=== PATIENT | female | born 1970 | race Caucasian/White ===

== ENCOUNTER 2017-07-12 13:21 | Emergency (ER) | payer BC, OTHER ==
[2017-07-12 13:31] VITALS: BP 127/77
[2017-07-12] MEDS ORDERED: HYDROmorphone 1 MG/ML Syringe IM ONE (13:59)
[2017-07-12] MEDS ORDERED: cefTRIAXone 1 GM Vial IM SCH (14:00)
[2017-07-12] MEDS ORDERED: Ciprofloxacin in D5W 400 MG in Premix Bag 1 BAG IV ONE ×4 (14:28→14:39)
[2017-07-12] MEDS ORDERED: Bacitracin/Neomycin/Polymyxin B Oint 0.9 GM U/D Packet TOP ONE (14:31)
[2017-07-12] MEDS ORDERED: Sodium Chloride 0.9% 10 ML Syringe FLUSH PRN (14:31)
--- NOTE | 2017-07-12 15:40 | EDM.PDOC ---
ED HPI GENERAL MEDICAL PROBLEM - General Chief Complaint: Upper Extremity Injury/Pain Stated Complaint: finger injury Time Seen by Provider: 07/12/17 13:45 Source of Information: Reports: Patient History Limitations: Reports: No Limitations - History of Present Illness INITIAL COMMENTS - FREE TEXT/NARRATIVE: Patient is a 47-year-old was seen in the ER status post) crush injury to left middle finger patient was working on a press which caught the finger causing crush injury to finger x-rays obtained relief, noted fracture and compound fracture Onset: Today, Sudden Duration: Hour(s): (1.5 hour ago) Location: Reports: Upper Extremity, Left (left middle finger distal phalanx) Quality: Reports: Throbbing Severity: Severe Improves with: Reports: Immobilization, Rest Worsens with: Reports: Movement Context: Reports: Trauma Associated Symptoms: Reports: No Other Symptoms Treatments NEWSPAPER MANAGER: Reports: Cold Therapy Left Hand Pain Score (Numeric/FACES): 5 - Related Data Allergies Allergy/AdvReac Type Severity Reaction Status Date / Time Penicillins Allergy Cannot Verified 07/12/17 13:31 Remember Home Meds: Home Meds Albuterol [Proventil HFA] 2 puff INH ASDIRECTED PRN 11/17/16 [History] DULoxetine [Cymbalta] 60 mg PO DAILY 11/17/16 [History] Diltiazem [Cardizem CD] 180 mg PO DAILY 11/17/16 [History] Ergocalciferol (Vitamin D2) [Vitamin D] 400 unit PO DAILY 11/17/16 [History] Levothyroxine Sodium [Synthroid] 112 mcg PO DAILY 11/17/16 [History] Loratadine 10 mg PO DAILY PRN 11/17/16 [History] Losartan [Cozaar] 50 mg PO BID 11/17/16 [History] Triamterene/Hydrochlorothiazid [Triamterene-HCTZ 37.5-25 MG] 1 ea PO DAILY 11/17 [History] Glatiramer Acetate [Copaxone] 40 mg SQ MOWEFR 07/12/17 [History] Past Medical History HEENT History: Reports: Allergic Rhinitis, Impaired Vision, Other (See Below) Other HEENT History: Wears glasses Cardiovascular History: Reports: Arrhythmia, High Cholesterol, Hypertension, Other (See Below) Other Cardiovascular History: [id number] syndrome Respiratory History: Reports: Asthma Gastrointestinal History: Reports: Colon Polyp Genitourinary History: Reports: Urinary Incontinence, Other (See Below) Other Genitourinary History: Urinary stress incontinence Other OB/BYN History: Premenopausal with last menses about 6 months ago Musculoskeletal History: Reports: None, Arthritis, Back Pain, Chronic, Osteoarthritis Neurological History: Reports: Concussion, Head Trauma, MS, Neuropathy, Peripheral, Other (See Below) Other Neuro History: Head concussions times 3 in 1970s, 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 Denies: Diabetes, Type I , Diabetes, Type II, IDDM, Osteoporosis Hematologic History: Reports: None Immunologic History: Reports: None Oncologic (Cancer) History: Reports: None Dermatologic History: Reports: None - Infectious Disease History Infectious Disease History: Reports: Chicken Pox - Past Surgical History Head Surgeries/Procedures: Reports: None HEENT Surgical History: Reports: Oral Surgery, Other (See Below) Cardiovascular Surgical History: Reports: Cardiac Ablation Respiratory Surgical History: Reports: None GI Surgical History: Reports: Colonoscopy, Hernia Repair/Other, Other (See Below ) Endocrine Surgical History: Reports: Thyroid Biopsy, Other (See Below) Musculoskeletal Surgical History: Reports: Ganglion Cyst, Other (See Below) Oncologic Surgical History: Reports: None Dermatological Surgical History: Reports: None Social & Family History - Tobacco Use Smoking Status *Q: Never Smoker Years of Tobacco use: 34 Packs/Tins Daily: 0.1 (1 can per week) Second Hand Smoke Exposure: Yes - Caffeine Use Caffeine Use: Reports: Coffee, Soda - Alcohol Use Days Per Week of Alcohol Use: 3 (No previous DWIs, problems with alcohol abuse, etc.) Number of Drinks Per Day: 3 (Usually beer) Total Drinks Per Week: 9 - Recreational Drug Use Recreational Drug Use: No Drug Use in Last 12 Months: No - Living Situation & Occupation Living situation: Reports: Single, with Family Occupation: Employed Review of Systems - Review of Systems Review Of Systems: See Below Constitutional: Reports: No Symptoms Eyes: Reports: No Symptoms Ears: Reports: No Symptoms Nose: Reports: No Symptoms Mouth/Throat: Reports: No Symptoms Respiratory: Reports: No Symptoms Cardiovascular: Reports: No Symptoms, Other (History of WPW) GI/Abdominal: Reports: No Symptoms Genitourinary: Reports: No Symptoms Musculoskeletal: Reports: Hand Pain Skin: Reports: No Symptoms, Other (Crush injury to left middle finger) Neurological: Reports: No Symptoms Psychiatric: Reports: No Symptoms ED EXAM, GENERAL - Physical Exam Exam: See Below Exam Limited By: No Limitations General Appearance: Alert, WD/WN, No Apparent Distress Ears: Normal External Exam, Normal Canal, Hearing Grossly Normal, Normal TMs Ear Exam: Bilateral Ear: Auricle Normal, Canal Normal, TM normal Nose: Normal Inspection, Normal Mucosa, No Blood Throat/Mouth: Normal Inspection, Normal Lips, Normal Teeth, Normal Gums, Normal Oropharynx, Normal Voice, No Airway Compromise Head: Atraumatic, Normocephalic Neck: Normal Inspection, Supple, Non-Tender, Full Range of Motion Respiratory/Chest: No Respiratory Distress, Lungs Clear, Normal Breath Sounds, No Accessory Muscle Use, Chest Non-Tender Cardiovascular: Normal Peripheral Pulses, Regular Rate, Rhythm, No Edema, No Gallop, No JVD, No Murmur, No Rub GI/Abdominal: No Abnormal Bruit Back Exam: Normal Inspection, Full Range of Motion, NT Extremities: Other (Crush injury to left third finger distal phalanx with fracture of the distal tip and proximal metaphysis) Neurological: Alert, Oriented, CN II-XII Intact, Normal Cognition, Normal Gait, Normal Reflexes, No Motor/Sensory Deficits Psychiatric: Normal Affect, Normal Mood Skin Exam: Warm, Dry, Intact, Normal Color, No Rash Lymphatic: No Adenopathy Course - Vital Signs Last Recorded V/S: Last Vital Signs Temp 97.9 F 07/12/17 13:22 Pulse 71 07/12/17 13:22 Resp 20 07/12/17 13:22 BP 127/77 07/12/17 13:22 Pulse Ox 97 07/12/17 13:22 - Orders/Labs/Meds Orders: Active Orders 24 hr Category Date Time Status Fingers Third Digit Lt F2 [CR] Stat Exams 07/12/17 13:57 Taken Sodium Chloride 0.9% [Saline Flush] Med 07/12/17 14:31 Ordered 10 ml FLUSH ASDIRECTED PRN Saline Lock Insert [OM.PC] Stat Oth 07/12/17 14:31 Ordered Medication Orders Sodium Chloride (Saline Flush) 10 ml FLUSH ASDIRECTED PRN PRN Reason: Keep Vein Open Meds: Medications Generic Name Dose Route Start Last Admin Trade Name Freq PRN Reason Stop Dose Admin Sodium Chloride 10 ml 07/12/17 14:31 Saline Flush FLUSH ASDIRECTED PRN Keep Vein Open Discontinued Medications Generic Name Dose Route Start Last Admin Trade Name Kristin PRN Reason Stop Dose Admin Ceftriaxone Sodium 1 gm 07/12/17 14:00 07/12/17 14:15 Rocephin IM Not Given Q24H GAYE Hydromorphone HCl 1 mg 07/12/17 13:59 07/12/17 14:03 Dilaudid IM 07/12/17 14:00 1 mg ONETIME ONE Administration Ciprofloxacin/Dextrose 400 mg/ 200 mls @ 200 mls/hr 07/12/17 14:28 07/12/17 14:50 Premix IV 07/12/17 15:27 Not Given ONETIME ONE Ciprofloxacin/Dextrose 400 mg/ 200 mls @ 200 mls/hr 07/12/17 14:39 07/12/17 14:46 Premix IV 07/12/17 15:38 200 mls/hr ONETIME ONE Administration Lidocaine HCl 10 ml 07/12/17 14:31 07/12/17 14:44 Xylocaine-Mpf 1% INJECT 07/12/17 14:32 10 ml ONETIME ONE Administration Neomycin/Polymyxin/Bacitracin 1 each 07/12/17 14:31 07/12/17 14:44 Triple Antibiotic Oint TOP 07/12/17 14:32 1 each ONETIME ONE Administration Departure - Departure Time of Disposition: 15:47 Disposition: Home, Self-Care 01 Condition: Fair Clinical Impression: Fracture, finger, distal phalanx, open Qualifiers: Encounter type: initial encounter Finger: index finger Laterality: left - Discharge Information Forms: ED Department Discharge Care Plan Goals: Patient was seen in the ER x-rays obtained which revealed open fracture of the distal phalanx in good general position will go ahead and closed finger and sent to Dr. ospina hand surgeon. area was prepped and draped in the usual standard form, after that was draped and prepped the finger was irrigated with saline. Once the finger was cleaned we went ahead and approximated the skin using 4-0 nylon, 6 interrupted sutures. A Siddhartha dressing was placed patient sent home on Cipro 500 twice a day and Narco 5/325 one tablet every 6 hours for pain 20 tablets given patient tenderness toxoid up-to-date patient is to return to the clinic if worsening pain or any signs of infection - My Orders Last 24 Hours: My Active Orders 07/12/17 13:57 Fingers Third Digit Lt F2 [CR] Stat 07/12/17 14:31 Sodium Chloride 0.9% [Saline Flush] 10 ml FLUSH ASDIRECTED PRN Saline Lock Insert [OM.PC] Stat - Assessment/Plan Last 24 Hours: My Active Orders 07/12/17 13:57 Fingers Third Digit Lt F2 [CR] Stat 07/12/17 14:31 Sodium Chloride 0.9% [Saline Flush] 10 ml FLUSH ASDIRECTED PRN Saline Lock Insert [OM.PC] Stat
== END 2017-07-12 16:02 | disposition home or self-care (01) ==
LOC: LL.ED 13:21
DX: S62.633B Displaced fracture of distal phalanx of left middle finger, initial encounter for open fracture (principal); S61.213A Laceration without foreign body of left middle finger without damage to nail, initial encounter; W23.0XXA Caught, crushed, jammed, or pinched between moving objects, initial encounter; E78.00 Pure hypercholesterolemia, unspecified; I10 Essential (primary) hypertension; J45.909 Unspecified asthma, uncomplicated; E10.9 Type 1 diabetes mellitus without complications
CPT/HCPCS: 12001; 73140; 96365; 96375; 99283; J0744; J1170

== ENCOUNTER 2017-12-28 07:45 | Emergency (ER) | payer BC, OTHER ==
--- NOTE | 2017-12-28 08:09 | EDM.PDOC ---
ED HPI GENERAL MEDICAL PROBLEM - General Chief Complaint: General Stated Complaint: Fall with leg pain Time Seen by Provider: 12/28/17 08:00 Source of Information: Reports: Patient, EMS, EMS Notes Reviewed, Family ( Brother), Old Records ([facility] EMR. No paper hospital chart available.) History Limitations: Reports: No Limitations - History of Present Illness INITIAL COMMENTS - FREE TEXT/NARRATIVE: The patient was brought to the emergency room via ambulance with basic EMT transport. They did attempt to apply a splint to her left leg and ankle, however secondary to equipment malfunction this was suboptimal in nature. Note that the patient was outside her garage at home at about 05:50 hours this morning when she slipped on the ice twisting her left ankle. She did hear a snap and has been unable to bear weight on it since that time. The patient was found by her brother at about 6 AM with some cold exposure for about 45 minutes but no evidence of significant hypothermia at time of arrival. She rates her discomfort at 10/10 with movement with 4/10 chronic sharp pain otherwise at rest. The patient has had ligamental injuries of both ankles in the past, however no previous history of fracture in this extremity in the past. The patient denies any chest pain/pressure, heart flutter, dizziness, orthostasis, orthopnea, diaphoresis, paresthesias, recent decreased exercise tolerance, or any other anginal-type symptoms. No recent history of abdominal pain, heartburn , nausea, diarrhea, melena, gross hematochezia, or any food intolerance, including fatty foods, etc.. She denies any gross hematuria or other UTI symptoms. The patient also denies any recent fever, cough, wheezing, dyspnea, etc.. No history of change of her chronic paresthesias from her MS, however note some recent progressive fatigue secondary to patient stopping her medications on her own in about September 2017. No history of headaches, loss of consciousness, change in mental status, neck/back pain, knee pain, other change in neurological status, or other complaints or injuries. Patient did take her medications this morning. Last oral intake at about 05:30 a.m. today. Onset: Today, Sudden Onset Date: 12/28/17 Onset Time: 05:50 Duration: Constant Location: Reports: Lower Extremity, Left. Denies: Head, Face, Neck, Chest, Abdomen, Back, Pelvis, Upper Extremity, Left, Upper Extremity, Right, Lower Extremity, Right, Radiates to Quality: Reports: Sharp Severity: Severe Improves with: Reports: Rest Worsens with: Reports: Movement Context: Reports: Trauma (As above) Associated Symptoms: Reports: Weakness (Stable chronic from her MS). 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: Other (see below) (None) Left Lower Leg Pain Score (Numeric/FACES): 4 - Related Data Allergies Allergy/AdvReac Type Severity Reaction Status Date / Time Penicillins Allergy Cannot Verified 12/28/17 08:07 Remember Home Meds: Home Meds Albuterol [Proventil HFA] 2 puff INH ASDIRECTED PRN 11/17/16 [History] DULoxetine [Cymbalta] 60 mg PO DAILY 11/17/16 [History] Diltiazem [Cardizem CD] 180 mg PO DAILY 11/17/16 [History] Levothyroxine Sodium [Synthroid] 112 mcg PO DAILY 11/17/16 [History] Loratadine 10 mg PO DAILY PRN 11/17/16 [History] Losartan [Cozaar] 50 mg PO BID 11/17/16 [History] Triamterene/Hydrochlorothiazid [Triamterene-HCTZ 37.5-25 MG] 1 ea PO DAILY 11/17 [History] Past Medical History HEENT History: Reports: Allergic Rhinitis, Impaired Vision, Other (See Below). Denies: Cataract, Glaucoma, Hard of Hearing, Macular Degeneration, Retinal Detachment Other HEENT History: Wears glasses. Environmental allergies. Cardiovascular History: Reports: Arrhythmia, High Cholesterol, Hypertension, Other (See Below). Denies: Afib, Aneurysm, Blood Clots/VTE/DVT, Bypass, CAD, Cardiomyopathy, Heart Failure, Heart Murmur, FL, Pacemaker, PVD, Syncope Other Cardiovascular History: Mxun-Lputpgojrk-Ybgix syndrome with subsequent ablation as below Respiratory History: Reports: Asthma, Bronchitis, Recurrent, Intubation, Previous. Denies: COPD, Intubation, Difficult, PE, Pneumothorax, Pulmonary Fibrosis, Sleep Apnea Gastrointestinal History: Reports: Colon Polyp. Denies: Bowel Obstruction, Celiac Disease, Cholelithiasis, Chronic Constipation, Chronic Diarrhea, Diverticulosis, Fecal Incontinence, GERD, GI Bleed, Hepatitis, Hiatal Hernia, Inflammatory Bowel Disease, Irritable Bowel Syndrome, Jaundice, Pancreatitis, PUD Other Gastrointestinal History: Benign colonic polyp of unknown type in 2015 as below Genitourinary History: Reports: Urinary Incontinence, Other (See Below). 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 Musculoskeletal History: Reports: Arthritis, Back Pain, Chronic, Fracture, Osteoarthritis, Other (See Below). Denies: Amputation, Gout, Osteoporosis, RA, SLE Other Musculoskeletal History: Calcaneal fracture of the right foot in 1995 with no surgery. Comminuted placed open distal phalangeal fracture digit #3 of the left hand with no surgery required Neurological History: Reports: Concussion, Head Trauma, MS, Neuropathy, Peripheral, Other (See Below). Denies: Alzheimers Disease, Cerebral Aneurysms, CVA, Headaches, Chronic, Migraines, Neuropathy, Diabetic, Parkinson's, Seizure, TIA Other Neuro History: Head concussions times 3 in 1970s, peripheral neuropathy from MS Psychiatric History: Reports: Anxiety, Depression. Denies: None, Abuse, Victim of, ADD, ADHD, Addiction, Psych Hospitalization(s), PTSD, Suicide Attempt, Suicidal Ideation Endocrine/Metabolic History: Reports: Hypothyroidism, Obesity/BMI 30+, Other ( See Below). Denies: Diabetes, Type I, Diabetes, Type II, Diabetes Mellitus, Type 3c, IDDM, Osteoporosis Other Endocrine/Metabolic History: History of goiter with negative thyroid biopsies as below Hematologic History: Reports: None. Denies: Anemia, Blood Transfusion(s), Iron Deficiency Immunologic History: Reports: None. Denies: AIDS, HIV, SLE Oncologic (Cancer) History: Reports: None. Denies: Basal Cell Carcinoma, Cervix , Colon, Hodgkin's Lymphoma, Leukemia, Lung, Lymphoma, Malignant Melanoma, Non- Hodgkin's Lymphoma, Squamous Cell Carcinoma Dermatologic History: Reports: None. Denies: Eczema, Melanoma - Infectious Disease History Infectious Disease History: Reports: Chicken Pox. Denies: C-Difficile, Measles , Meningitis, Mononucleosis, MRSA, Mumps, Pertussis (Whooping Cough), Rheumatic Fever, Rubella, Scarlet Fever, Shingles, TB, VRE - Past Surgical History Head Surgeries/Procedures: Reports: None HEENT Surgical History: Reports: Oral Surgery, Other (See Below). Denies: Adenoidectomy, Cataract Surgery, Eye Surgery, Laser Surgery, LASIK, Myringotomy w Tube(s), Naso-Sinus Surgery, Tonsillectomy Other HEENT Surgeries/Procedures: Previous tooth extractions Cardiovascular Surgical History: Reports: Cardiac Ablation, Other (See Below). Denies: Coronary Artery Bypass, Coronary Artery Stent, Percutaneous Transluminal Angioplasty, Valve Replacement, Varicose Other Cardiovascular Surgeries/Procedures: Cardiac ablation for Nolberto-Parkinson- White syndrome in 1992 Respiratory Surgical History: Reports: None. Denies: Thoracentesis GI Surgical History: Reports: Colonoscopy, Hernia Repair/Other, Polypectomy, Other (See Below). Denies: Appendectomy, Cholecystectomy, EGD, Hernia, Abdominal, Hernia, Inguinal Other GI Surgeries/Procedures: Umbilical hernia repair 1982; colonoscopy with polypectomy of unknown type in September 2014 Female Surgical History: Reports: None. Denies: Breast Biopsy, D&C, Hysterectomy, Salpingo-Oophorectomy, Tubal Ligation Endocrine Surgical History: Reports: Thyroid Biopsy, Other (See Below) Other Endocrine Surgeries/Procedures: Thyroid biopsy for benign disease/goiter 2 in the early Neurological Surgical History: Reports: None. Denies: C-Spine, Discectomy, Laminectomy, Lumbar Spine, Sacral Spine, Spinal Fusion, Vertebroplasty Musculoskeletal Surgical History: Reports: Ganglion Cyst, Other (See Below). Denies: Arthroscopic Knee, Arthroscopic Procedure, Carpal Tunnel, Joint Replacement, ORIF, Shoulder Surgery Other Musculoskeletal Surgeries/Procedures:: Left ganglion cyst excision initially in the early with subsequent repeat surgery in about 2007 Oncologic Surgical History: Reports: None Dermatological Surgical History: Reports: None - Past Imaging History Past Imaging History: Reports: Cardiac Echo (In 1992 with results not available) . Denies: Angiography Social & Family History - Tobacco Use Smoking Status *Q: Current Every Day Smoker Tobacco Use Within Last Twelve Months: Snuff/Dip Years of Tobacco use: 35 Packs/Tins Daily: 0.2 Packs/Tins Daily Comment: Started using chewing tobacco at age 12 with maximum use of one half can per day with current use of one can per week Used Tobacco, but Quit: Yes Smoking Cessation Information Provided To Patient: Yes Second Hand Smoke Exposure: Yes Source of Second Hand Smoke Exposure: Brother and boyfriend smokes cigarettes with maternal uncle using chewing tobacco Second Hand Smoke Education Provided: Yes - Caffeine Use Caffeine Use: Reports: Coffee (One cup every 2 weeks), Soda (1 soda per day). Denies: Energy Drinks, Tea - Alcohol Use Alcohol Use History: Yes Days Per Week of Alcohol Use: 3 (No previous DWIs, problems with alcohol abuse, etc.) Number of Drinks Per Day: 3 (Usually beer) Total Drinks Per Week: 9 Date of Last Drink: 12/27/17 Time of Last Drink: 17:00 Alcohol Use in Last Twelve Months: Yes Alcohol Use Frequency: Socially - Recreational Drug Use Recreational Drug Use: No Drug Use in Last 12 Months: No Recreational Drug Type: Denies: Amphetamines (Speed), Cocaine, Heroin, Inhalants (Glues, Solvents, Aerosols), LSD (Acid), Marijuana/Hashish, Methamphetamine, Oxycodone - Living Situation & Occupation Living situation: Reports: Single (No children), with Family (Maternal uncle) Occupation: Employed ([employer]) ED ROS GENERAL - Review of Systems Review Of Systems: ROS reveals no pertinent complaints other than HPI. ED EXAM, GENERAL - Physical Exam Exam: See Below Exam Limited By: No Limitations General Appearance: Alert, WD/WN, No Apparent Distress Eye Exam: Bilateral Eye: EOMI, Normal Inspection (No nystagmus), PERRL Ears: Normal External Exam, Normal Canal, Hearing Grossly Normal, Normal TMs Nose: Normal Inspection, Normal Mucosa, No Blood Throat/Mouth: Normal Inspection, Normal Lips, Normal Teeth, Normal Gums, Normal Oropharynx, Normal Voice, No Airway Compromise. No: Dysphagia, Perioral Cyanosis Head: Atraumatic, Normocephalic. No: Facial Swelling, Facial Tenderness, Sinus Tenderness Neck: Normal Inspection, Supple, Non-Tender, Full Range of Motion. No: Lymphadenopathy (L), Lymphadenopathy (R), Thyromegaly Respiratory/Chest: No Respiratory Distress, Lungs Clear, Normal Breath Sounds, No Accessory Muscle Use, Chest Non-Tender. No: Pleural Rub, Retractions Cardiovascular: Normal Peripheral Pulses, Regular Rate, Rhythm, No Edema, No Gallop, No JVD, No Murmur, No Rub. No: Gallop/S3, Gallop/S4, Friction Rub Peripheral Pulses: 2+: Radial (L), Radial (R), Dorsalis Pedis (L), Dorsalis Pedis (R) GI/Abdominal: Normal Bowel Sounds, Soft, Non-Tender, No Organomegaly, No Distention, No Abnormal Bruit, No Mass, Pelvis Stable, Other (Obese). No: Guarding (Female) Exam: Deferred Rectal (Female) Exam: Deferred Back Exam: Normal Inspection, Full Range of Motion. No: CVA Tenderness (L), CVA Tenderness (R), Muscle Spasm Extremities: No Pedal Edema, Normal Capillary Refill, Leg Pain (Moderate palpation pain over the distal left tibia and fibula with this deformity and mild crepitation with movement. Moderate localized additional swelling), Limited Range of Motion (Secondary to fracture). No: Joint Swelling, Bj's Sign Neurological: Alert, Oriented, CN II-XII Intact, Normal Cognition, Normal Gait, Normal Reflexes (Negative Babinski's), No Motor/Sensory Deficits Psychiatric: Normal Affect, Normal Mood Skin Exam: Warm, Dry, Intact, Normal Color, No Rash, Stud(s) (Auricular regions bilaterally), Tattoo(s) (Multiple). No: Diaphoretic, Ecchymosis, Wound/Incision Lymphatic: No Adenopathy ED GENERAL MEDICAL PROCEDURES - Splinting Left Lower Extremity Splint Site: Left leg Pre-procedure NV status: Normal Post-procedure NV status: Normal Splint Material: Other (Six-inch Hernan wraps 3. Padding material. Padded fiberglass 4 inch in width and 75 cm in length long leg posterior/plantar splint. Six-inch by 30 inch preformed fiberglass stirrup splint to ankle and distal left leg) Splint Design: Stirrup, Other (Posterior leg splint as above) Applied & Form Fitted By: Provider, Nurse Provider Post-Splint Application NV Check: NV Status Normal, Good Position Complications: No Course - Vital Signs Last Recorded V/S: Last Vital Signs Temp 36.4 C 12/28/17 09:48 Pulse 73 12/28/17 09:48 Resp 14 12/28/17 09:48 BP 127/81 12/28/17 09:48 Pulse Ox 99 12/28/17 09:48 Vital Signs - 24 hr 12/28/17 12/28/17 12/28/17 07:50 08:09 08:25 Temperature [ 36.6 C Temporal] Pulse, 74 70 68 Peripheral [ Pulse Oximetry] Respiratory 16 14 14 Rate Blood Pressure 176/88 H 151/78 H 139/78 [Right Upper Arm] O2 Sat by Pulse 100 97 99 Oximetry 12/28/17 12/28/17 12/28/17 09:00 09:31 09:48 Temperature [ 36.4 C Temporal] Pulse, 98 63 73 Peripheral [ Pulse Oximetry] Respiratory 16 14 Rate Blood Pressure 121/104 H 139/83 127/81 [Right Upper Arm] O2 Sat by Pulse 99 99 99 Oximetry - Orders/Labs/Meds Orders: Active Orders 24 hr Category Date Time Status Peripheral IV Care [RC] . DIRECTED Care 12/28/17 08:12 Active Ankle Min 3V Lt [CR] Stat Exams 12/28/17 08:09 Taken Obtain Past Medical Record [OM.PC] Urgent Oth 12/28/17 08:09 Active Peripheral IV Insertion Adult [OM.PC] Routine Oth 12/28/17 08:12 Ordered Labs: None Meds: Medications Discontinued Medications Generic Name Dose Route Start Last Admin Trade Name Freq PRN Reason Stop Dose Admin Fentanyl 50 mcg 12/28/17 08:12 12/28/17 08:45 Sublimaze IVPUSH 12/28/17 08:13 50 mcg ONETIME ONE Administration Fentanyl 50 mcg 12/28/17 09:12 12/28/17 09:18 Sublimaze IVPUSH 12/28/17 09:13 50 mcg ONETIME ONE Administration Ondansetron HCl 4 mg 12/28/17 08:12 12/28/17 08:46 Zofran IVPUSH 12/28/17 08:13 4 mg ONETIME ONE Administration Sodium Chloride 10 ml 12/28/17 08:12 12/28/17 09:19 Saline Flush FLUSH 10 ml ASDIRECTED PRN Administration Keep Vein Open - Radiology Interpretation Free Text/Narrative:: X-rays of the left ankle including distal left tibia and fibula region, 3 views , shows a mildly angulated and displaced comminuted distal third tibial and fibular fracture. Ankle mortise does appear intact with evidence of probable old medial malleolar and posterior talar avulsion fractures. Departure - Departure Time of Disposition: 10:30 Disposition: DC/Tfer to Acute Hospital 02 Condition: Good Clinical Impression: Tobacco abuse counseling, WPW (Zxnns-Xdhctbftd-Falvx syndrome), Multiple sclerosis Fracture of left tibia and fibula Qualifiers: Encounter type: initial encounter Fracture type: closed Qualified Code(s): S82.202A - Unspecified fracture of shaft of left tibia, initial encounter for closed fracture Hypertension Qualifiers: Hypertension type: essential hypertension Qualified Code(s): I10 - Essential ( primary) hypertension Hypothyroidism Qualifiers: Hypothyroidism type: acquired Qualified Code(s): E03.9 - Hypothyroidism, unspecified Asthma Qualifiers: Asthma severity: mild intermittent Asthma complication type: uncomplicated Allergic rhinitis Qualifiers: Allergic rhinitis trigger: unspecified Allergic rhinitis seasonality: non- seasonal Qualified Code(s): J30.89 - Other allergic rhinitis Osteoarthritis Qualifiers: Osteoarthritis location: multiple joints Osteoarthritis type: primary Qualified Code(s): M15.0 - Primary generalized (osteo)arthritis Hyperlipidemia Qualifiers: Hyperlipidemia type: pure hypercholesterolemia Qualified Code(s): E78.00 - Pure hypercholesterolemia, unspecified - Discharge Information Instructions: Tibial Fracture, Adult, [id number]-kr-Vyxn Referrals: PCP,Unobtain [Ordering Only Provider] - Forms: ED Department Discharge, Interfacility Transfer EMTALA Additional Instructions: 1. Ambulance transfer to [facility] in [place] 2. Stop all tobacco use YUE as directed/per provided information and consider contacting Quit LIne, etc.. - Problem List & Annotations (1) Fracture of left tibia and fibula SNOMED Code(s): 82705634 Code(s): S82.202A - UNSP FRACTURE OF SHAFT OF LEFT TIBIA, INIT FOR CLOS FX; S82.402A - UNSP FRACTURE OF SHAFT OF LEFT FIBULA, INIT FOR CLOS FX Status: Acute Priority: High Onset Date: 12/28/17 Annotation/Comment:: Patient placed in a long-leg posterior splint with additional stirrup splint as above. IV fentanyl use for pain control. Initial telephone consultation with [facility] at 08:45 hours with requested orthopedic consultation with Dr. Velarde, who was currently in surgery. He did apparently review the x-rays and is requesting that the hospitalist admit this patient. Subsequent telephone consultation at 09:[address] Valentine, hospitalist at [facility], who does accept the patient for direct admission and further orthopedic consultation as above. No further treatment or conditions given by either physician. Ambulance transfer with sheet metal duct installer helper accompaniment. Qualifiers: Encounter type: initial encounter Fracture type: closed Qualified Code(s) : S82.202A - Unspecified fracture of shaft of left tibia, initial encounter for closed fracture; S82.402A - Unspecified fracture of shaft of left fibula, initial encounter for closed fracture (2) Osteoarthritis SNOMED Code(s): 367284053 Code(s): M19.90 - UNSPECIFIED OSTEOARTHRITIS, UNSPECIFIED SITE Status: Chronic Priority: Medium Annotation/Comment:: Otherwise stable by history Qualifiers: Osteoarthritis location: multiple joints Osteoarthritis type: primary Qualified Code(s): M15.0 - Primary generalized (osteo)arthritis (3) WPW (Nbxpf-Xutpxqfar-Arifu syndrome) SNOMED Code(s): 98047186 Code(s): I45.6 - PRE-EXCITATION SYNDROME Status: Chronic Priority: Medium Annotation/Comment:: Note previous ablation with no recent chest pain or anginal type symptoms (4) Allergic rhinitis SNOMED Code(s): 17283001 Code(s): J30.9 - ALLERGIC RHINITIS, UNSPECIFIED Status: Chronic Priority : Medium Annotation/Comment:: Stable by history Qualifiers: Allergic rhinitis trigger: unspecified Allergic rhinitis seasonality: non- seasonal Qualified Code(s): J30.89 - Other allergic rhinitis (5) Asthma SNOMED Code(s): 436860821 Code(s): J45.909 - UNSPECIFIED ASTHMA, UNCOMPLICATED Status: Chronic Priority: Medium Annotation/Comment:: Stable by history with recent fever, bronchitic-type symptoms, etc. Qualifiers: Asthma severity: mild intermittent Asthma complication type: uncomplicated (6) Hypertension SNOMED Code(s): 71702876 Code(s): I10 - ESSENTIAL (PRIMARY) HYPERTENSION Status: Chronic Priority : Medium Annotation/Comment:: Somewhat elevated blood pressure initially in the emergency room but improved after therapy as above. Vital signs stable at time of transfer. She will continue to observe this closely through her regular provider. Qualifiers: Hypertension type: essential hypertension Qualified Code(s): I10 - Essential (primary) hypertension (7) Hypothyroidism SNOMED Code(s): 16885748 Code(s): E03.9 - HYPOTHYROIDISM, UNSPECIFIED Status: Chronic Priority: Medium Annotation/Comment:: Stable by history and currently under therapy. Qualifiers: Hypothyroidism type: acquired Qualified Code(s): E03.9 - Hypothyroidism, unspecified (8) Tobacco abuse counseling SNOMED Code(s): 984304562, 279717272, 451176420 Code(s): Z71.6 - TOBACCO ABUSE COUNSELING Status: Chronic Priority: Medium Annotation/Comment:: Tobacco cessation once again strongly encouraged with the patient counseled on the use of Nicorette gum with tobacco cessation information provided (9) Hyperlipidemia SNOMED Code(s): 83192215 Code(s): E78.5 - HYPERLIPIDEMIA, UNSPECIFIED Status: Chronic Priority: Medium Annotation/Comment:: Not currently under medical therapy with apparent excellent HDL despite current obesity Qualifiers: Hyperlipidemia type: pure hypercholesterolemia Qualified Code(s): E78.00 - Pure hypercholesterolemia, unspecified; E78.0 - Pure hypercholesterolemia (10) Multiple sclerosis SNOMED Code(s): 38150507 Code(s): G35 - MULTIPLE SCLEROSIS Status: Chronic Priority: Medium Annotation/Comment:: Stable by history with the patient stopping her medications on her own in September 2017 as above. She does apparently have a follow-up appointment with her neurologist scheduled in January. She does acknowledge some increased fatigue, weakness, etc. since discontinuation of her medications as above, however. - Problem List Review Problem List Initiated/Reviewed/Updated: Yes - My Orders Last 24 Hours: My Active Orders 12/28/17 08:09 Ankle Min 3V Lt [CR] Stat Obtain Past Medical Record [OM.PC] Urgent 12/28/17 08:12 Peripheral IV Care [RC] . DIRECTED Peripheral IV Insertion Adult [OM.] Routine - Assessment/Plan Last 24 Hours: My Active Orders 12/28/17 08:09 Ankle Min 3V Lt [CR] Stat Obtain Past Medical Record [OM.PC] Urgent 12/28/17 08:12 Peripheral IV Care [RC] . DIRECTED Peripheral IV Insertion Adult [OM.] Routine Assessment:: As above Plan: As above. Extensive precautions were given to the patient, who is in agreement with the treatment plan. Ambulance transfer to [facility] in [place] with sheet metal duct installer helper accompaniment.
[2017-12-28] MEDS ORDERED: fentaNYL 100 MCG/2 ML SDV IVPUSH ONE ×2 (08:12→09:12)
[2017-12-28] MEDS ORDERED: Ondansetron 4 MG/2 ML SDV IVPUSH ONE (08:12)
[2017-12-28] MEDS: Sodium Chloride 0.9% 10 ML Syringe FLUSH PRN ×2 (08:45→09:19)
[2017-12-28 09:49] VITALS: BP 127/81
== END 2017-12-28 10:30 ==
LOC: LL.ED 07:45
DX: S82.452A Displaced comminuted fracture of shaft of left fibula, initial encounter for closed fracture (principal); S82.392A Other fracture of lower end of left tibia, initial encounter for closed fracture; I45.6 Pre-excitation syndrome; G35 Multiple sclerosis; I10 Essential (primary) hypertension; E03.9 Hypothyroidism, unspecified; E78.00 Pure hypercholesterolemia, unspecified; J30.89 Other allergic rhinitis; F17.290 Nicotine dependence, other tobacco product, uncomplicated; M15.0 Primary generalized (osteo)arthritis; Z88.0 Allergy status to penicillin; Z79.899 Other long term (current) drug therapy; Z71.6 Tobacco abuse counseling
CPT/HCPCS: 29515; 73610-LT; 96374; 96375; 96376; 99284; J2405; J3010; J7050

== ENCOUNTER 2019-04-04 12:31 | Emergency (ER) | payer BC, OTHER ==
[2019-04-04 13:03] VITALS: BP 140/71; PULSE 86
[2019-04-04] MEDS ORDERED: traMADol 50 MG Tab PO ONE (13:38)
--- NOTE | 2019-04-04 13:43 | EDM.PDOC ---
ED HPI GENERAL MEDICAL PROBLEM - General Chief Complaint: Lower Extremity Injury/Pain Stated Complaint: ankle crushed Time Seen by Provider: 04/04/19 12:58 Source of Information: Reports: Patient History Limitations: Reports: Other - History of Present Illness INITIAL COMMENTS - FREE TEXT/NARRATIVE: Patient comes to ER from [facility] after being hit in the back of the left ankle by a forklift. Forklift came up from behind. Only presenting complaint is left ankle pain. Unable to fully bear weight. No laceration involved. Injured same leg about a year ago when she slipped on ice and sustained a tib/ fib fracture which required surgical intervention. No radiation of pain. No complaint of numbness/neurologic change. 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 Left Ankle Pain Score (Numeric/FACES): 4 - Related Data Allergies Allergy/AdvReac Type Severity Reaction Status Date / Time Penicillins Allergy Cannot Verified 04/04/19 12:41 Remember Home Meds: Home Meds Albuterol [Proventil HFA] 2 puff INH ASDIRECTED PRN 11/17/16 [History] DULoxetine [Cymbalta] 60 mg PO DAILY 11/17/16 [History] Diltiazem [Cardizem CD] 180 mg PO DAILY 11/17/16 [History] Levothyroxine Sodium [Synthroid] 112 mcg PO DAILY 11/17/16 [History] Loratadine 10 mg PO DAILY PRN 11/17/16 [History] Losartan [Cozaar] 50 mg PO BID 11/17/16 [History] Triamterene/Hydrochlorothiazid [Triamterene-HCTZ 37.5-25 MG] 1 ea PO DAILY 11/17 [History] Past Medical History HEENT History: Reports: Allergic Rhinitis, Impaired Vision, Other (See Below) Other HEENT History: Wears glasses. Environmental allergies. 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 Musculoskeletal History: Reports: Arthritis, Back Pain, Chronic, Fracture, Osteoarthritis, Other (See Below) Other Musculoskeletal History: Calcaneal fracture of the right foot in 1995 with no surgery. 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 Denies: C-Difficile, Measles , Meningitis, Mononucleosis, MRSA, Mumps, Pertussis (Whooping Cough), Rheumatic Fever, Rubella, Scarlet Fever, Shingles, TB, VRE - Past Surgical History Head Surgeries/Procedures: Reports: None HEENT Surgical History: Reports: Oral Surgery, Other (See Below) Other HEENT Surgeries/Procedures: Previous tooth extractions Cardiovascular Surgical History: Reports: Cardiac Ablation, Other (See Below) Other Cardiovascular Surgeries/Procedures: Cardiac ablation for Nolberto-Parkinson- White syndrome in 1992 Respiratory Surgical History: Reports: None GI Surgical History: Reports: Colonoscopy, Hernia Repair/Other, Polypectomy, Other (See Below) Other GI Surgeries/Procedures: Umbilical hernia repair 1982; colonoscopy with polypectomy of unknown type in September 2014 Female Surgical History: Reports: None Endocrine Surgical History: Reports: Thyroid Biopsy, Other (See Below) Other Endocrine Surgeries/Procedures: Thyroid biopsy for benign disease/goiter 2 in the early Neurological Surgical History: Reports: None Musculoskeletal Surgical History: Reports: Ganglion Cyst, Other (See Below) Other Musculoskeletal Surgeries/Procedures:: Left ganglion cyst excision initially in the early with subsequent repeat surgery in about 2007 Oncologic Surgical History: Reports: None Dermatological Surgical History: Reports: None - Past Imaging History Past Imaging History: Reports: Cardiac Echo (In 1992 with results not available) . Denies: Angiography Social & Family History - Tobacco Use Smoking Status *Q: Heavy Tobacco Smoker Years of Tobacco use: 20 Packs/Tins Daily: 0.5 - Caffeine Use Caffeine Use: Reports: Soda Other Caffeine Use: 2 per day - Recreational Drug Use Recreational Drug Use: No - Living Situation & Occupation Living situation: Reports: Single (No children), with Family (Maternal uncle) Occupation: Employed ([employer]) Review of Systems - Review of Systems Review Of Systems: ROS reveals no pertinent complaints other than HPI. ED EXAM, GENERAL - Physical Exam Exam: See Below Exam Limited By: No Limitations General Appearance: Alert, WD/WN, No Apparent Distress Eye Exam: Bilateral Eye: EOMI, PERRL Head: Atraumatic, Normocephalic Neck: Supple Respiratory/Chest: No Respiratory Distress Extremities: Normal Capillary Refill, Other (Diffuse tenderness with palpation around medial and lateral malleoli and heel. Bruising and mild swelling in same areas. No deformity. No obvious laxity noted. Skin is intact. Able to wiggle toes. ) Neurological: Alert, Oriented, Other (mild subjective numbness with touch around heel. ) Psychiatric: Normal Affect, Normal Mood Skin Exam: Warm, Dry, Intact, Ecchymosis. No: Cyanosis, Erythema, Mottled, Pallor Course - Vital Signs Last Recorded V/S: Last Vital Signs Temp 36.6 C 04/04/19 12:40 Pulse 86 04/04/19 13:02 Resp 18 04/04/19 13:02 BP 140/71 04/04/19 13:02 Pulse Ox 99 04/04/19 13:02 - Orders/Labs/Meds Orders: Active Orders 24 hr Category Date Time Status Ankle Min 3V Lt [CR] Stat Exams 04/04/19 12:42 Taken Meds: Medications Discontinued Medications Generic Name Dose Route Start Last Admin Trade Name Madhuq PRN Reason Stop Dose Admin Tramadol HCl 100 mg 04/04/19 13:38 04/04/19 13:51 Ultram PO 04/04/19 13:39 100 mg ONETIME ONE Administration - Radiology Interpretation Free Text/Narrative:: Xray of ankle showed no obvious fracture. Hardware from previous surgery noted. - Re-Assessments/Exams Free Text/Narrative Re-Assessment/Exam: Initial BP elevated. Patient anxious, irritated about getting injured. No obvious fracture noted on xray. Ankle wrapped in Hernan wrap. Patient has crutches at home that she can use. Diagnosed with soft tissue injury/contusion. No work for the next two days. Single Tramadol dose given. To be rechecked in clinic on . Further restrictions can be determined at that time as needed. Patient agreeable with plan. BP much improved at time of discharge. Departure - Departure Time of Disposition: 13:40 Disposition: Home, Self-Care 01 Condition: Good Clinical Impression: Left ankle injury Qualifiers: Encounter type: initial encounter Qualified Code(s): S99.912A - Unspecified injury of left ankle, initial encounter - Discharge Information *PRESCRIPTION DRUG MONITORING PROGRAM REVIEWED*: Not Applicable *COPY OF PRESCRIPTION DRUG MONITORING REPORT IN PATIENT STEFFI: Not Applicable Instructions: RICE Therapy for Routine Care of Injuries, [id number] Referrals: PCP,Unknown [Primary Care Provider] - Forms: ED Department Discharge Additional Instructions: Avoid weightbearing on injured foot. Use crutches to assist with ambulation. OK to use Tylenol and/or Ibuprofen. Follow up at clinic for recheck and further restrictions as needed. - My Orders Last 24 Hours: My Active Orders 04/04/19 12:42 Ankle Min 3V Lt [CR] Stat - Assessment/Plan Last 24 Hours: My Active Orders 04/04/19 12:42 Ankle Min 3V Lt [CR] Stat
== END 2019-04-04 14:05 | disposition home or self-care (01) ==
LOC: LL.ED 12:31
DX: S90.02XA Contusion of left ankle, initial encounter (principal); I10 Essential (primary) hypertension; E03.9 Hypothyroidism, unspecified; J45.909 Unspecified asthma, uncomplicated; E66.9 Obesity, unspecified; F17.210 Nicotine dependence, cigarettes, uncomplicated; Z98.890 Other specified postprocedural states; Z79.899 Other long term (current) drug therapy; Z88.0 Allergy status to penicillin; W22.8XXA Striking against or struck by other objects, initial encounter
CPT/HCPCS: 73610; 99283; A9270